=== PATIENT | male | born 1940 | race Caucasian/White ===

== ENCOUNTER 2017-01-27 08:30 | Outpatient (CLI) | payer MEDICARE, BC ==
--- NOTE | 2017-01-27 15:20 | PET ---
PET CT OF THE BRAIN: HISTORY: Early onset Alzheimer's disease. TECHNIQUE: PET CT of the brain was performed following the intravenous administration of 12.2 mCi F18-FDG injec caryn in the right hand. Imaging was performed after an uptake interval of 53 minutes. FINDINGS: There is symmetric tracer distribution to both hemispheres. No hypometabolism is seen in the temporo parietal lobes. IMPRESSION: Normal exam. POS: [facility]
== END 2017-01-27 08:31 | disposition home or self-care (01) ==
LOC: PET 08:30
PROVIDERS: ATTEND Psychiatry & Neurology Neurology
DX: G30.0 Alzheimer's disease with early onset (principal)
CPT/HCPCS: 78608; A9552

== ENCOUNTER 2017-05-09 18:59 | Inpatient (IN) | payer MEDICARE, BC ==
--- NOTE | 2017-05-09 19:53 | RAD ---
CHEST ONE VIEW 05/09/17 HISTORY: Cough. COMPARISON: Chest one view 03/14/17. FINDINGS: The lungs are clear. No pneumothorax or effusion. The cardiac silhouette and mediastinal contours are within normal limits. ' IMPRESSION: No acute intrathoracic abnormality. POS: H
[2017-05-09 19:58] LABS: #Eosinphils 0.1 thou/uL (0.0-0.7); #Neutrophils 7.7 thou/uL (1.40-6.50); %Basophils 0.1 % (0.0-1.0); %Eosinophils 0.9 % (0.0-10.0); %Lymphocytes 9.7 % (21.0-51.0); %Monocytes 10.4 % (0.0-10.0); %Neutrophils 78.8 % (42.0-75.0); Hemoglobin 13.8 g/dL (14.0-18.0); Mean Corpuscular HGB CONC 32.2 g/dL (32.0-36.0); Mean Corpuscular Hemoglobin 32.9 pg (27.0-31.0); Mean Platelet Volume 7.2 fL (7.4-10.4); Platelet Count 214 thou/uL (130-400); RBC Distribution Width 13.2 % (11.5-14.5); Red Blood Cell (RBC) Count 4.18 mill/uL (4.70-6.10); White Blood Cell (WBC) Count 9.8 thou/uL (4.8-10.8)
[2017-05-09 20:16] LABS: ALT (SGPT) 15 U/L (8-55); AST (SGOT) 18 U/L (5-34); Albumin 3.6 g/dL (3.4-4.8); Alkaline Phosphatase 67 U/L (40-150); Anion Gap 14 mmol/L (10-20); BUN (Urea Nitrogen) 18 mg/dL (8.4-25.7); Bilirubin, Total 0.9 mg/dL (0.2-1.2); CK (CPK) 264 U/L (30-200); Calc. Creatinine Clearance 0 mL/min (70-130); Calcium 9.4 mg/dL (7.8-10.44); Carbon Dioxide 25 mmol/L (23-31); Chloride 101 mmol/L (98-107); Estimated GFR-MDRD 43; Globulin 3.5 g/dL (2.4-3.5); Glucose 158 mg/dL (83-110); Potassium 4.2 mmol/L (3.5-5.1); Protein, Total 7.1 g/dL (5.8-8.1); Sodium 136 mmol/L (136-145)
[2017-05-09 20:20] LABS: CKMB 1.4 ng/mL (0-6.6); Troponin I 0.021 ng/mL (< 0.028)
[2017-05-09] MEDS ORDERED: Dexamethasone 4 mg/ml Vial ONE (20:22)
[2017-05-09 20:24] LABS: Bilirubin Negative (Negative); Blood, Urine Trace (Negative); Clarity TURBID (Clear); Glucose, Urine (Dipstick) Negative (Negative); Leukocyte Large (Negative); Nitrite Positive (Negative); Protein, Urine (Dipstick) 100 mg/dL (Neg-Trace); Specific Gravity, Urine 1.022 (1.002-1.036); Urobilinogen 0.2 mg/dL (0.2-1.0)
[2017-05-09 20:27] LABS: Bacteria/HPF 4+ HPF (None Seen); Hyaline Casts/LPF 0-3 HYALINE CAST LPF (0-3 Hyaline); Pathc Cast-AUWi Flag 0.27 (0-2.49); Squamous Epithelial 0-3 HPF (0-3)
[2017-05-09 20:32] LABS: Crystals/HPF RARE TRIPLE PHOS HPF (Negative); RBC/HPF 0-3 HPF (0-3)
[2017-05-09] MEDS ORDERED: Sodium Chloride For Inhalation 0.9% 3 ML NEB ONE (21:27)
[2017-05-09] MEDS ORDERED: Oseltamivir 75 MG CAP PO SCH (22:45)
[2017-05-09] MEDS ORDERED: Acetaminophen 325 MG TAB PO PRN (23:43)
[2017-05-09] MEDS ORDERED: Lorazepam 0.5 MG TAB PO PRN (23:43)
[2017-05-09] MEDS ORDERED: Guaifenesin DM 100-10/5 ML UDCUP PO PRN (23:43)
[2017-05-09] MEDS ORDERED: Mag-Al 1200 mg/1200 mg/30 ML UDCUP PO PRN (23:43)
--- NOTE | 2017-05-10 01:36 | HP ---
REASON FOR ADMISSION: Acute respiratory failure with hypoxia, chronic obstructive pulmonary disease exacerbation, influenza A. HISTORY OF PRESENTING ILLNESS: The patient lives at [facility] and has been wheezing from 2:00 p.m. or so. He had a temperature of 100.7. He had runny nose and was feeling congested from this morning. He was finally sent here as his temperature went up to 101.2 degrees. On arrival in the ER, the patient was hypoxic and had to be placed on BiPAP. His flu came back positive. He has taken his flu shot for this year and pneumococcal shot 2 years back. The patient is wheelchair bound and walks very minimal distance with a rolling walker. 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 Has had intracranial bleed and was in a coma in 2011, in [place], the patient was on Coumadin then. Dyslipidemia, hypertension, suprapubic catheter, hypothyroidism. AICD, cholecystectomy, appendectomy, tonsillectomy, history of IL. CURRENT MEDICATIONS: Per prison records, the patient is on aspirin 81 mg p.o. daily, atorvastatin 80 mg p.o. daily, Coreg 6.25 mg p.o. twice daily, cetirizine 5 mg daily, donepezil 10 mg daily, Zetia 10 mg daily, hydralazine 25 mg 3 times daily, isosorbide dinitrate 10 mg 3 times daily, levothyroxine 75 mcg daily, Protonix 40 mg daily, Seroquel 100 mg p.o. at bedtime and 25 mg p.o. q.a.m., sotalol 120 mg p.o. twice daily, spironolactone 25 mg daily. ALLERGIES: No known drug allergies. PERSONAL HISTORY: Does not abuse alcohol or drugs. No history of smoking. The patient is a resident at [facility]. FAMILY HISTORY: The patient is adopted and he does not know much about his biological parents. Power of compliance attorney is his two nieces, Ms. Ponce and Ms. Brock. The patient's code status is FULL. REVIEW OF SYSTEMS: The following complete review of systems was negative, unless otherwise mentioned in the HPI or below: Constitutional: Weight loss or gain, ability to conduct usual activities. Skin: Rash, itching. Eyes: Double vision, pain. ENT/Mouth: Nose bleeding, neck stiffness, pain, tenderness. Cardiovascular: Palpitations, dyspnea on exertion, orthopnea. Respiratory: Shortness of breath, wheezing, cough, hemoptysis, fever or night sweats. Gastrointestinal: Poor appetite, abdominal pain, heartburn, nausea, vomiting, constipation, or diarrhea. Genitourinary: Urgency, frequency, dysuria, nocturia. Musculoskeletal: Pain, swelling. Neurologic/Psychiatric: Anxiety, depression. Allergy/Immunologic: Skin rash, bleeding tendency. PHYSICAL EXAMINATION: GENERAL: The patient is a 76-year-old male, who is currently not in any acute distress. VITAL SIGNS: Blood pressure 130/62, pulse 74 per minute, respiratory rate 20 per minute, temperature 98.8 degrees Fahrenheit, saturating 98% on 4 liters nasal cannula and 99% on BiPAP. NECK: Supple, no elevated JVD. HEENT: Eyes: Extraocular muscles are intact. Pupils are reacting to light. Oral cavity: Mucous membranes are moist. No exudates or congestion. CARDIOVASCULAR SYSTEM: S1, S2 heard. Regular rhythm. RESPIRATORY SYSTEM: Air entry 1+ bilateral. Scattered wheezes plus bilateral. ABDOMEN: Soft, bowel sounds heard. No tenderness, rigidity or guarding. Has a suprapubic catheter. EXTREMITIES: There is 2+ peripheral edema. No calf tenderness. VASCULAR SYSTEM: Peripheral pulses 1+ bilateral. No ischemic ulcerations or gangrene. CENTRAL NERVOUS SYSTEM: No gross focal deficits seen. The patient moves all extremities. PSYCHIATRIC SYSTEM: The patient does not have any hallucinations or delusions at present. LABORATORY AND X-RAY FINDINGS: EKG shows normal sinus rhythm at 72 beats per minute. White count of 9, H&H 13 and 42, platelet count 214, MCV is 102 with 78 % neutrophils. BUN 18, creatinine 1.5. Serum bicarbonate 25. BNP is 320, CK level is 264. Liver enzymes within normal limits. First set of cardiac enzymes are negative. UA shows positive nitrite, large leukocyte esterase, greater than 50 wbc's and 4+ bacteria. Influenza A was positive, influenza A antigen is positive on the nasal swab. Chest x-ray, no acute cardiopulmonary abnormalities. CLINICAL IMPRESSION AND PLAN: The patient will be admitted to [facility] for acute respiratory failure with hypoxia and being on BiPAP. He also has acute chronic obstructive pulmonary disease exacerbation with current wheezing. 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 In view of above-mentioned factors, he will be on IMCU. He will be on Solu-Medrol 40 mg IV q.6 hourly along with DuoNebs and empiric Levaquin. He will also be on Tamiflu 75 mg twice daily. The patient appears to be a vaccine failure for flu. We will continue him on his home medications including Lipitor, Coreg, Zetia, hydralazine, Isordil, sotalol and spironolactone as before. Ultrasound venous Doppler of lower extremities will be obtained to rule out deep venous thrombosis. Please note the patient has prior history of intracranial hemorrhage in 2011 and was in a coma per family. Code status is FULL, I have discussed this with the patient and his 2 nieces who were also the power of compliance attorney. SPENSER
[2017-05-10] MEDS ORDERED: Levofloxacin 500 mg/D5W 100 ml Premix Bag ONE (01:40)
[2017-05-10 04:15] LABS: #Lymphocytes 0.5 thou/uL (1.20-3.40); #Monocytes 0.3 thou/uL (0.11-0.59); #Neutrophils 8.8 thou/uL (1.40-6.50); %Basophils 0.1 % (0.0-1.0); %Eosinophils 0.2 % (0.0-10.0); %Lymphocytes 5.3 % (21.0-51.0); %Monocytes 3.4 % (0.0-10.0); %Neutrophils 91.1 % (42.0-75.0); Hemoglobin 13.4 g/dL (14.0-18.0); Mean Corpuscular HGB CONC 32.5 g/dL (32.0-36.0); Mean Corpuscular Hemoglobin 33.3 pg (27.0-31.0); Mean Platelet Volume 7.5 fL (7.4-10.4); Platelet Count 200 thou/uL (130-400); RBC Distribution Width 13.1 % (11.5-14.5); Red Blood Cell (RBC) Count 4.01 mill/uL (4.70-6.10); White Blood Cell (WBC) Count 9.7 thou/uL (4.8-10.8)
[2017-05-10 04:31] LABS: Anion Gap 16 mmol/L (10-20); BUN (Urea Nitrogen) 20 mg/dL (8.4-25.7); Calc. Creatinine Clearance 0 mL/min (70-130); Calcium 9.3 mg/dL (7.8-10.44); Carbon Dioxide 23 mmol/L (23-31); Chloride 102 mmol/L (98-107); Estimated GFR-MDRD 49; Glucose 240 mg/dL (83-110); Potassium 4.7 mmol/L (3.5-5.1); Sodium 136 mmol/L (136-145)
[2017-05-10] MEDS ORDERED: Water For Inject, Bacteriostat 30 ML ONE (06:30)
--- NOTE | 2017-05-10 09:06 | ULT ---
BILATERAL UPPER EXTREMITY ULTRASOUND WITH DUPLEX VENOUS DOPPLER: CPT: 30887 ICD-10-PCS: B54D INDICATIONS: Edema. TECHNIQUE: Color-flow Doppler, spectral wave-form analysis of pulsed Doppler, and juan-scale imaging with compre ssion and augmentation were used to evaluate the bilateral common femoral, femoral, popliteal, stock wetter ior tibial, and superficial femoral veins, and the proximal portions of the profunda femoral and grea ter saphenous veins. FINDINGS: Appropriate compressibility and flow within the imaged deep venous system of each lower extremity. IMPRESSION: 1. No deep venous thrombosis. 2. Soft tissue edema. Correlate clinically. POS: [facility]
--- NOTE | 2017-05-10 17:08 | PDOC.PN ---
- Subjective Encounter Start Date: 05/10/17 Encounter Start Time: 17:06 sob better no n/v no f/c - Objective Resuscitation Status: Resuscitation Status FULL:Full Resuscitation MAR Reviewed: Yes Vital Signs & Weight: Vital Signs (12 hours) Pulse Resp Pulse Ox 05/10/17 14:39 61 20 05/10/17 10:10 61 20 95 05/10/17 06:39 60 20 99 Result Diagrams: 05/10/17 03:46 05/10/17 03:46 Phys Exam - Physical Examination Constitutional: NAD HEENT: PERRLA Neck: no JVD scattered wheezes Cardiovascular: RRR Gastrointestinal: non-tender supra pubic cath in place Musculoskeletal: pulses present Neurological: moves all 4 limbs Psychiatric: A&O x 3 Dx/Plan (1) CHF exacerbation Code(s): I50.9 - HEART FAILURE, UNSPECIFIED Status: Acute (2) COPD exacerbation Code(s): J44.1 - CHRONIC OBSTRUCTIVE PULMONARY DISEASE W (ACUTE) EXACERBATION Status: Acute (3) Influenza A Code(s): J10.1 - FLU DUE TO OTH IDENT INFLUENZA VIRUS W OTH RESP MANIFEST Status: Acute (4) Hyperlipidemia Code(s): E78.5 - HYPERLIPIDEMIA, UNSPECIFIED Status: Acute (5) CAD (coronary artery disease) Code(s): I25.10 - ATHSCL HEART DISEASE OF [place] CORONARY ARTERY W/O ANG PCTRS Status: Acute (6) Dyslipidemia Code(s): E78.5 - HYPERLIPIDEMIA, UNSPECIFIED Status: Acute - Plan * cont current mx * f/u echo
[2017-05-10] MEDS ORDERED: Furosemide 40 MG/4 ML VIAL ONE (18:55)
[2017-05-10] MEDS: Carvedilol 6.25 MG TAB PO SCH ×2 (19:53→19:58)
[2017-05-10] MEDS: Levothyroxine Sodium 75 MCG TAB PO SCH (19:53)
[2017-05-10] MEDS: Docusate 100 MG CAP PO SCH ×2 (19:54→21:42)
[2017-05-10] MEDS: Famotidine 20 MG TAB PO SCH (19:54)
[2017-05-10] MEDS: Ezetimibe 10 MG TAB PO SCH (19:54)
[2017-05-10] MEDS: hydrALAZINE 25 MG TAB PO SCH ×2 (19:55→20:49)
[2017-05-10] MEDS: Isosorbide Dinitrate 20 MG TAB PO SCH ×3 (19:55→20:49)
[2017-05-10] MEDS: Multivitamin W/ Minerals 1 TAB PO SCH (19:56)
[2017-05-10] MEDS: Spironolactone 25 MG TAB PO SCH (19:56)
[2017-05-10] MEDS: Oseltamivir 75 MG CAP PO SCH ×2 (19:56→20:49)
[2017-05-10] MEDS: Sotalol HCl 80 MG TAB PO SCH ×2 (19:56→20:47)
[2017-05-10] MEDS: Furosemide 40 MG/4 ML VIAL SLOW IVP SCH (19:57)
[2017-05-10] MEDS: Atorvastatin Calcium 40 MG TAB PO SCH (20:48)
[2017-05-11 00:30] VITALS: BMI 31.6
[2017-05-11 04:55] LABS: #Lymphocytes 0.9 thou/uL (1.20-3.40); #Monocytes 0.9 thou/uL (0.11-0.59); #Neutrophils 13.5 thou/uL (1.40-6.50); %Basophils 0.1 % (0.0-1.0); %Eosinophils 0.1 % (0.0-10.0); %Lymphocytes 5.9 % (21.0-51.0); %Monocytes 5.6 % (0.0-10.0); %Neutrophils 88.3 % (42.0-75.0); Hemoglobin 12.5 g/dL (14.0-18.0); Mean Corpuscular HGB CONC 32.4 g/dL (32.0-36.0); Mean Platelet Volume 7.3 fL (7.4-10.4); Platelet Count 235 thou/uL (130-400); Red Blood Cell (RBC) Count 3.79 mill/uL (4.70-6.10); White Blood Cell (WBC) Count 15.3 thou/uL (4.8-10.8)
[2017-05-11 05:33] LABS: Albumin 3.2 g/dL (3.4-4.8); Anion Gap 15 mmol/L (10-20); BUN (Urea Nitrogen) 27 mg/dL (8.4-25.7); BUN/Creatinine Ratio 17.42; Calc. Creatinine Clearance 66 mL/min (70-130); Carbon Dioxide 24 mmol/L (23-31); Chloride 101 mmol/L (98-107); Estimated GFR-MDRD 44; Glucose 195 mg/dL (83-110); Phosphorus 2.6 mg/dL (2.3-4.7); Potassium 3.9 mmol/L (3.5-5.1); Sodium 136 mmol/L (136-145)
[2017-05-11] MEDS: Furosemide 40 MG/4 ML VIAL SLOW IVP SCH ×2 (05:47→15:15)
[2017-05-11] MEDS: Levothyroxine Sodium 75 MCG TAB PO SCH (05:47)
--- NOTE | 2017-05-11 08:07 | RAD ---
AP VIEW OF THE CHEST: INDICATION: Shortness of breath. COMPARISON: Prior exam dated 05/09/17. FINDINGS: Lungs are clear. Cardiomediastinal silhouette is within normal limits. AICD is unchanged. Healed d eformity involving the mid left clavicle is similar. IMPRESSION: No acute cardiopulmonary abnormality. POS: [facility]
[2017-05-11] MEDS ORDERED: Prevnar 13-Val Conj/PF 0.5 ML SYRINGE IM ONE (09:00)
[2017-05-11] MEDS: Isosorbide Dinitrate 20 MG TAB PO SCH ×3 (09:52→21:39)
[2017-05-11] MEDS: Spironolactone 25 MG TAB PO SCH (09:56)
[2017-05-11] MEDS: Ezetimibe 10 MG TAB PO SCH (09:56)
[2017-05-11] MEDS: Sotalol HCl 80 MG TAB PO SCH ×2 (09:56→21:37)
[2017-05-11] MEDS: Docusate 100 MG CAP PO SCH ×2 (09:57→21:40)
[2017-05-11] MEDS: Oseltamivir 75 MG CAP PO SCH ×2 (09:57→21:38)
[2017-05-11] MEDS: hydrALAZINE 25 MG TAB PO SCH ×3 (09:58→21:39)
[2017-05-11] MEDS: Carvedilol 6.25 MG TAB PO SCH ×2 (09:58→17:50)
[2017-05-11] MEDS: Multivitamin W/ Minerals 1 TAB PO SCH (09:58)
[2017-05-11] MEDS: Famotidine 20 MG TAB PO SCH (09:59)
--- NOTE | 2017-05-11 11:00 | PQF ---
INOCENCIO FLORES DAMODHARAN [id number] [facility] [id number] CLINICAL DOCUMENTATION IMPROVEMENT CLARIFICATION FORM: ICD-10 Updated PLEASE DO AN ADDENDUM TO THE PROGRESS NOTE WITH ANY DOCUMENTATION UPDATES OR ADDITIONS AND CARRY THROUGH TO DC SUMMARY. THANK YOU. DATE: 05-11-17 ATTN: DR. DAS Please exercise your independent, professional judgment in responding to the clarification form. Clinical indicators are provided on the bottom of this form for your review Please check appropriate box(s): [ ] UTI D/T Suprapubic Catheter [ ] UTI NOT D/T Suprapubic Catheter [# ] Contaminated urine specimen without UTI [ ] Other diagnosis [ ] Unable to determine For continuity of documentation, please document condition throughout progress notes and discharge summary. Thank You. CLINICAL INDICATORS - SIGNS / SYMPTOMS / LABS 1-6 Positive urinalysis - LARGE LEUKOCYTE ER: CHIEF COMPLAINT - [place] STAFF INFORMED TMAX 100.7 ER DX: UTI - SAMPLE TAKEN FROM SUPRAPUBIC CATHETER RISK FACTORS H&P: HAS A SUPRAPUBIC CATHETER TREATMENT: CPOE - MAR: LEVAQUIN (05-10) THANK YOU, HEIDI (This form is maintained as a part of the permanent medical record) 2015 [employer] All Rights Reserved Heidi Gilman RN, BS [email or web address]
--- NOTE | 2017-05-11 14:49 | CON ---
DATE OF CONSULTATION: 05/11/2017 HISTORY OF PRESENT ILLNESS: Mr. Hagen is a 76-year-old morbidly obese gentleman who apparently canales s short term memory issues and dementia, who is residing in a halfway community, presented to the hospital with cough, congestion, bronchitis and shortness of breath. He was found to have influenza A. He sees Dr. Blackwell for regular care. He is a nonsmoker. No prior history of TB or pneumonia. PAST MEDICAL HISTORY: Hypothyroidism, coronary artery disease, AICD, lipidemia and UTI. PAST SURGICAL HISTORY: Bypass, AICD, appendix, gallbladder and tonsils. MEDICATIONS: Tramadol, hydralazine 25, Aldactone 25, sotalol 120 twice a day, Seroquel 100, Ativan 0 .5 three times a day, Synthroid 75 a day, Ismo 10 three times a day, DuoNeb, Zetia 10, donepezil 10, Coreg 6.25, Lipitor 80, aspirin and Tylenol. Since admission, he was started on Tamiflu and Levaquin . SOCIAL HISTORY: He is an retired teacher. ALLERGIES: None. REVIEW OF SYSTEMS: Ten-point negative. PHYSICAL EXAMINATION: VITAL SIGNS: Sats are at 96% on 2 liters, blood pressure 130/69, pulse 80 and respiratory rate 18. CHEST: No wheezing or crackles. CARDIAC: Normal S1 and S2. No gallops. ABDOMEN: Soft. No masses. LABORATORY DATA AND IMAGING DATA: White count 15,000, hemoglobin and hematocrit 12 and 38, platelet count is normal. Creatinine is 1.5. X-ray is normal. Urine is growing gram-negative rods. IMPRESSION: 1. Influenza A. 2. Urinary tract infection, chronic indwelling catheter. 3. Dementia. 4. Renal failure. 5. Chronic obstructive pulmonary disease. 6. Morbid obesity. PLAN: We will continue antibiotics. They are eager to go back to the longterm. Await all culture results before we transfer him back . Monitor renal function. We will deescalate antibiotics. Please note this is a consultation note in which fifty-minute is spent at the patient's bedside on e floor with direct patient care.
--- NOTE | 2017-05-11 18:37 | PDOC.PN ---
- Subjective Encounter Start Date: 05/11/17 Encounter Start Time: 18:36 Patient seen and examined. No new complaints. No overnight events - Objective Resuscitation Status: Resuscitation Status FULL:Full Resuscitation MAR Reviewed: Yes Vital Signs & Weight: Vital Signs (12 hours) Temp Pulse Pulse Pulse Resp BP BP 05/11/17 17:50 112/64 05/11/17 16:11 98.3 F 78 20 05/11/17 15:15 76 123/60 05/11/17 14:12 76 20 05/11/17 11:24 98.3 F 79 18 05/11/17 10:30 83 87 98/63 05/11/17 09:58 80 132/69 05/11/17 09:56 75 132/69 05/11/17 08:15 05/11/17 08:09 80 20 05/11/17 08:00 98.3 F 75 18 BP BP Pulse Ox 05/11/17 17:50 05/11/17 16:11 114/66 96 05/11/17 15:15 05/11/17 14:12 05/11/17 11:24 104/58 L 93 L 05/11/17 10:30 98/56 L 05/11/17 09:58 05/11/17 09:56 05/11/17 08:15 93 L 05/11/17 08:09 93 L 05/11/17 08:00 95 Weight Weight 260 lb I&O: 05/10/17 05/11/17 05/12/17 06:59 06:59 06:59 Intake Total 340 Output Total 1700 Balance -1360 Result Diagrams: 05/11/17 04:26 05/11/17 04:26 Phys Exam - Physical Examination Constitutional: NAD HEENT: PERRLA Neck: no JVD Respiratory: no wheezing coarse bs Cardiovascular: no significant murmur Gastrointestinal: non-tender Musculoskeletal: pulses present Neurological: moves all 4 limbs Psychiatric: A&O x 3 Dx/Plan (1) CHF exacerbation Code(s): I50.9 - HEART FAILURE, UNSPECIFIED Status: Acute (2) COPD exacerbation Code(s): J44.1 - CHRONIC OBSTRUCTIVE PULMONARY DISEASE W (ACUTE) EXACERBATION Status: Acute (3) Influenza A Code(s): J10.1 - FLU DUE TO OTH IDENT INFLUENZA VIRUS W OTH RESP MANIFEST Status: Acute (4) Hyperlipidemia Code(s): E78.5 - HYPERLIPIDEMIA, UNSPECIFIED Status: Acute (5) CAD (coronary artery disease) Code(s): I25.10 - ATHSCL HEART DISEASE OF [place] CORONARY ARTERY W/O ANG PCTRS Status: Acute (6) Dyslipidemia Code(s): E78.5 - HYPERLIPIDEMIA, UNSPECIFIED Status: Acute - Plan * cont current mx * f/u echo * pulm input appreciated
[2017-05-11] MEDS: Atorvastatin Calcium 40 MG TAB PO SCH (21:38)
[2017-05-12 05:17] LABS: #Lymphocytes 1.9 thou/uL (1.20-3.40); #Monocytes 0.6 thou/uL (0.11-0.59); #Neutrophils 7.2 thou/uL (1.40-6.50); %Basophils 0.4 % (0.0-1.0); %Eosinophils 0.3 % (0.0-10.0); %Lymphocytes 19.1 % (21.0-51.0); %Monocytes 5.8 % (0.0-10.0); %Neutrophils 74.4 % (42.0-75.0); Hemoglobin 12.8 g/dL (14.0-18.0); Mean Corpuscular Hemoglobin 33.6 pg (27.0-31.0); Platelet Count 217 thou/uL (130-400); Red Blood Cell (RBC) Count 3.81 mill/uL (4.70-6.10); White Blood Cell (WBC) Count 9.7 thou/uL (4.8-10.8)
[2017-05-12] MEDS: Levothyroxine Sodium 75 MCG TAB PO SCH (05:17)
[2017-05-12 05:47] LABS: Albumin 3.2 g/dL (3.4-4.8); Anion Gap 11 mmol/L (10-20); BUN (Urea Nitrogen) 29 mg/dL (8.4-25.7); BUN/Creatinine Ratio 18.59; Calc. Creatinine Clearance 64 mL/min (70-130); Calcium 8.9 mg/dL (7.8-10.44); Carbon Dioxide 29 mmol/L (23-31); Chloride 101 mmol/L (98-107); Estimated GFR-MDRD 43; Glucose 143 mg/dL (83-110); Phosphorus 3.1 mg/dL (2.3-4.7); Potassium 3.4 mmol/L (3.5-5.1); Sodium 138 mmol/L (136-145)
[2017-05-12] MEDS ORDERED: Sodium Chloride 0.9% 10 ML ONE (08:00)
[2017-05-12] MEDS: Multivitamin W/ Minerals 1 TAB PO SCH (09:20)
[2017-05-12] MEDS: Docusate 100 MG CAP PO SCH (09:20)
[2017-05-12] MEDS: Oseltamivir 75 MG CAP PO SCH (09:20)
[2017-05-12] MEDS: hydrALAZINE 25 MG TAB PO SCH ×2 (09:20→15:13)
[2017-05-12] MEDS: Carvedilol 6.25 MG TAB PO SCH ×2 (09:21→16:49)
[2017-05-12] MEDS: Spironolactone 25 MG TAB PO SCH (09:21)
[2017-05-12] MEDS: Isosorbide Dinitrate 20 MG TAB PO SCH ×2 (09:21→15:16)
[2017-05-12] MEDS: Sotalol HCl 80 MG TAB PO SCH (09:22)
[2017-05-12] MEDS: Famotidine 20 MG TAB PO SCH (09:22)
[2017-05-12] MEDS: Ezetimibe 10 MG TAB PO SCH (09:22)
--- NOTE | 2017-05-12 10:29 | PRG ---
DATE OF SERVICE: 05/12/2017 This morning he is awake, responsive, less agitated. PHYSICAL EXAMINATION: VITAL SIGNS: His sats are 95 on 2 liters, temperature 96, blood pressure 120/61. CHEST: Chest revealed occasional wheeze. CARDIAC: Normal S1-S2. No gallops. ABDOMEN: No masses. LABORATORY: White count 9000, H&H 12 and 38, platelet count 217, creatinine 1.7. IMPRESSION: 1. Baseline dementia. 2. Urinary tract infection, Escherichia coli. 3. Influenza. 4. Renal failure. PLAN: He is stable enough to be transferred back to his Alzheimer's unit. Antibiotics for UTI. Gamez iflu for influenza for 5 days.
--- NOTE | 2017-05-12 12:02 | PDOC.PN ---
- Subjective Encounter Start Date: 05/12/17 Encounter Start Time: 12:01 Patient seen and examined. No new complaints. No overnight events - Objective Resuscitation Status: Resuscitation Status FULL:Full Resuscitation MAR Reviewed: Yes Vital Signs & Weight: Vital Signs (12 hours) Temp Pulse Resp BP BP Pulse Ox 05/12/17 09:22 77 05/12/17 09:21 125/61 05/12/17 09:20 77 125/61 05/12/17 08:00 96.8 F L 77 22 H 125/61 95 05/12/17 07:20 79 16 96 05/12/17 04:44 93 L 05/12/17 04:00 97.9 F 70 22 H 104/55 L 97 05/12/17 00:42 72 16 93 L Weight Weight 254 lb I&O: 05/11/17 05/12/17 05/13/17 06:59 06:59 06:59 Intake Total 340 460 Output Total 1700 1200 Balance -1360 -740 Result Diagrams: 05/12/17 04:44 05/12/17 04:44 Phys Exam - Physical Examination Constitutional: NAD HEENT: PERRLA Neck: no nodes coarse bs Cardiovascular: no significant murmur Gastrointestinal: non-tender Musculoskeletal: pulses present Neurological: normal sensation, moves all 4 limbs Psychiatric: A&O x 3 Dx/Plan (1) CHF exacerbation Code(s): I50.9 - HEART FAILURE, UNSPECIFIED Status: Acute Qualifiers: Congestive heart failure type: diastolic Qualified Code(s): I50.33 - Acute on chronic diastolic (congestive) heart failure Comment: ef-55% (2) COPD exacerbation Code(s): J44.1 - CHRONIC OBSTRUCTIVE PULMONARY DISEASE W (ACUTE) EXACERBATION Status: Acute (3) Influenza A Code(s): J10.1 - FLU DUE TO OTH IDENT INFLUENZA VIRUS W OTH RESP MANIFEST Status: Acute (4) Hyperlipidemia Code(s): E78.5 - HYPERLIPIDEMIA, UNSPECIFIED Status: Acute (5) CAD (coronary artery disease) Code(s): I25.10 - ATHSCL HEART DISEASE OF [place] CORONARY ARTERY W/O ANG PCTRS Status: Acute (6) Dyslipidemia Code(s): E78.5 - HYPERLIPIDEMIA, UNSPECIFIED Status: Acute (7) Atrial fib/flutter, transient Code(s): [id number] - Status: Acute Comment: paroxysmal on aspirin for anticoagulation as pt is high risk of fall out pt f/u cardiology - Plan * doing good * d/c to [facility]
[2017-05-12 15:24] VITALS: BP 141/67; TEMP 97
--- NOTE | 2017-05-12 21:45 | DIS ---
DATE OF ADMISSION: 05/09/2017 DATE OF DISCHARGE: 05/12/2017 DIAGNOSES ON DISCHARGE: Acute on chronic diastolic congestive heart failure with an ejection fractio n of 55%, resolved; acute chronic obstructive pulmonary disease exacerbation secondary to influenza A , better; acute respiratory failure with hypoxia, better; history of coronary artery disease status p ost coronary artery bypass graft, stable; anoxic brain injury after myocardial infarction in 2000, st able; hypothyroidism, stable; AICD; dyslipidemia; hypertension; suprapubic catheter. DISCHARGE MEDICATIONS: The patient's discharge medications are the same as admit medications plus Le vaquin 500 mg p.o. daily for 7 days, Tamiflu 75 mg p.o. b.i.d. for 6 days, and Lasix 40 mg p.o. daily for 7 days. CONSULTANTS ON CASE: Pulmonary. BRIEF HOSPITAL COURSE: This is a 76-year-old pleasant gentleman, who was apparently in the usual sta te of health, came into the hospital with a temperature of 100.7 and was hypoxic. He was feeling con gested. He tested positive for the flu and he also had an upper respiratory tract infection. He had COPD exacerbation as well and congestive heart failure exacerbation as well. He was diuresed adequa tely and put on neb treatments and treatment for the flu and Levaquin for the upper respiratory tract infection. He improved with this treatment and right now is medically stable. Patient has a suprap ubic catheter and the urine specimen collected was from the bag, which showed evidence of some E. col i, but because the patient was stable and had no symptoms, I regarded it as a contaminated urine spec imen. The patient right now is doing much better. He is medically stable to be discharged back to [facility] and follow up with his PCP in 1 week. He is asked to come back to the emergency room in case symptoms recur. Total time for this discharge took 35 minutes.
== END 2017-05-12 17:38 | disposition home or self-care (01) | DRG 291 ==
LOC: ERS 18:59 → ERHOLD 22:43 → 2NO 05-10 19:27
PROVIDERS: ADMIT Internal Medicine; ATTEND Internal Medicine
PROC: 5A09357 Assistance with Respiratory Ventilation, Less than 24 Consecutive Hours, Continuous Positive Airway Pressure (ICD-10-PCS; principal; 2017-05-09)
PROC: 5A09357 Assistance with Respiratory Ventilation, Less than 24 Consecutive Hours, Continuous Positive Airway Pressure (ICD-10-PCS; 2017-05-09)
DX: I11.0 Hypertensive heart disease with heart failure (principal); J96.01 Acute respiratory failure with hypoxia; L89.302 Pressure ulcer of unspecified buttock, stage 2; J44.1 Chronic obstructive pulmonary disease with (acute) exacerbation; I50.33 Acute on chronic diastolic (congestive) heart failure; G30.9 Alzheimer's disease, unspecified; F02.80 Dementia in other diseases classified elsewhere, unspecified severity, without behavioral disturbance, psychotic disturbance, mood disturbance, and anxiety; J11.1 Influenza due to unidentified influenza virus with other respiratory manifestations; Z99.3 Dependence on wheelchair; Z95.1 Presence of aortocoronary bypass graft; Z87.820 Personal history of traumatic brain injury; I25.2 Old myocardial infarction; E78.5 Hyperlipidemia, unspecified; Z96.0 Presence of urogenital implants; E03.9 Hypothyroidism, unspecified; Z95.810 Presence of automatic (implantable) cardiac defibrillator; Z79.82 Long term (current) use of aspirin; I25.10 Atherosclerotic heart disease of native coronary artery without angina pectoris; E66.01 Morbid (severe) obesity due to excess calories; Z68.30 Body mass index [BMI] 30.0-30.9, adult; I44.0 Atrioventricular block, first degree; J39.8 Other specified diseases of upper respiratory tract
CPT/HCPCS: 36415; 71045; 80048; 80053; 80069; 81003; 81015; 82550; 82553; 83605; 83880; 84484; 85025; 87040; 87077; 87086; 87149; 87186; 87633; 93005; 93306; 93970; 94640; 94660; 96365; 96375; 96376; A4216; G8978-GP-CL; G8979-GP-CJ; J0696; J1100; J1940; J1956; J2920; J7620

== ENCOUNTER 2017-09-22 15:22 | Outpatient (CLI) | payer MEDICARE, BC | END 2017-09-22 15:23 | disposition home or self-care (01) | LOC: BICULT 15:22 | PROVIDERS: ATTEND Family Medicine | DX: Z03.89 Encounter for observation for other suspected diseases and conditions ruled out (principal) ==

== ENCOUNTER 2017-09-25 08:17 | Outpatient (CLI) | payer MEDICARE, BC ==
[2017-09-25] MEDS ORDERED: ISOVUE-370 76%-LOCM 1 ML ONE (11:16)
== END 2017-09-25 08:18 | disposition home or self-care (01) ==
LOC: BICCT 08:17
PROVIDERS: ATTEND Specialist
DX: E04.1 Nontoxic single thyroid nodule (principal); R22.0 Localized swelling, mass and lump, head
CPT/HCPCS: 70491

== ENCOUNTER → 2017-10-22 | Day surgery (SDC) | payer MEDICARE, BC ==
[~2017-10-22] MED LIST: Fentanyl 100 MCG/2 ML VIAL ONE; Lidocaine 1% PF 5 ML VIAL ONE; Lidocaine 1% w/Epinephrine 1:100K 30 ML VIAL ONE; Ondansetron HCl/PF 4 MG/2 ML Vial ONE; PROPOFOL 200 MG/20 ML VIAL ONE; ePHEDrine/0.9% NaCl/PF SYRINGE 50 mg/10 ml ONE
[2017-10-22 14:39] LABS: Hemoglobin 14.3 g/dL (14.0-18.0); Platelet Count 255 thou/uL (130-400)
[2017-10-22 15:10] LABS: Anion Gap 13 mmol/L (10-20); BUN (Urea Nitrogen) 22 mg/dL (8.4-25.7); Calc. Creatinine Clearance 0 mL/min (70-130); Calcium 9.7 mg/dL (7.8-10.44); Carbon Dioxide 27 mmol/L (23-31); Chloride 104 mmol/L (98-107); Estimated GFR-MDRD 47; Glucose 118 mg/dL (83-110); Sodium 140 mmol/L (136-145)
--- NOTE | 2017-10-23 09:30 | OP ---
DATE OF PROCEDURE: 10/22/2017 SURGEON: Dr. Juan Douglass PREOPERATIVE DIAGNOSES: 1. 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 2. Left parotid mass. PROCEDURE PERFORMED: 1. Excision of right malignant ear lesion with measuring 2.4 cm involving the antihelix and lobe wit h complex closure. 2. Left superficial parotidectomy with facial nerve dissection. PROCEDURE IN DETAIL: After consent was obtained, the patient was identified, brought to the operatin g room and placed on the operating table in supine position. General endotracheal anesthesia was obt ained. The patient was positioned for surgery. We addressed the right ear lesion first. The area w as prepped and draped and infiltrated with 1% lidocaine 1:10,000 epinephrine. A complex lesion was i dentified that involved the antihelix lobule and inferior aspect of the external canal and a 3 dimens ional elliptical incision was made under microscopic visualization. We then sent the specimen for fr weber section and found it to have clear margins. We then proceeded with rotating flaps into the defe ct and closing with 6-0 Prolene. Dermabond was then placed over the wound and we then prepped and dr aped for the contralateral side. A facial nerve monitor was placed at this point and documented to be working both in the mouth and ey e. We infiltrated the upper neck along a natural skin crease 2 fingerbreadths below the angle of the jaw and the preauricular space. We then delineated the high line of the incision and created an inc ision with a 15 blade through the skin and subcutaneous tissues. Hemostasis was obtained with the el ectrocautery. We then identified the anterior border of sternocleidomastoid and identified as well. Our incision extended down to the level of the SMAS and the parotid fascia. We then elevated a larg e facial flap anterior from this at this point and suture secured the flap to the anterior facial ski n. We then discontinued our dissection in the preauricular space and along the anterior border of st ernocleidomastoid a careful dissection happened at the level of the external canal cartilage and the posterior digastric muscle. Ultimately the trunk of the facial nerve was identified and it was follo wed along the PES. Both inferior and superior branches were identified and followed as all subsequen t branches that were encountered followed and dissected. This then allowed for reflection of the par otid gland inferiorly and anterior and inferior from the lesion and both inferiorly, anteriorly and p osteriorly. Ultimately, we were able to dissect the parotid tumor free from the facial nerve and the specimen was sent for histologic evaluation. We then turned our attention to hemostasis. A facial nerve stimulator was used and all branches responded and were intact. The wound was closed in layers with some fibular SurgiSeal placed over the facial nerve to prevent Thomas's syndrome. We then used a 5-0 Monocryl to reapproximate the dermis and a 6-0 Prolene for the skin. A sterile dressing was puma lied. The patient was awakened, extubated, and taken to the recovery room where he remained in stabl e condition prior to discharge home.
== END ==
LOC: SDC 13:59
PROVIDERS: ATTEND Specialist
PROC: 0HX2XZZ Transfer Right Ear Skin, External Approach (ICD-10-PCS; principal; 2017-10-22)
PROC: 0HB2XZZ Excision of Right Ear Skin, External Approach (ICD-10-PCS; 2017-10-22)
PROC: 0CB90ZZ Excision of Left Parotid Gland, Open Approach (ICD-10-PCS; 2017-10-22)
DX: C44.222 Squamous cell carcinoma of skin of right ear and external auricular canal (principal); K11.8 Other diseases of salivary glands; E03.9 Hypothyroidism, unspecified; I25.10 Atherosclerotic heart disease of native coronary artery without angina pectoris; E78.5 Hyperlipidemia, unspecified; J44.9 Chronic obstructive pulmonary disease, unspecified; I50.9 Heart failure, unspecified; I48.91 Unspecified atrial fibrillation; I25.2 Old myocardial infarction; N40.0 Benign prostatic hyperplasia without lower urinary tract symptoms; Z86.718 Personal history of other venous thrombosis and embolism; Z79.82 Long term (current) use of aspirin; Z79.84 Long term (current) use of oral hypoglycemic drugs; Z79.899 Other long term (current) drug therapy; Z88.8 Allergy status to other drugs, medicaments and biological substances; Z95.1 Presence of aortocoronary bypass graft
CPT/HCPCS: 36415; 80048; 85014; 85018; 85049; 88305; 88307; 93005; 93010; J2001; J2405; J2704; J3010

== ENCOUNTER 2021-05-30 22:55 | Emergency (ER) | payer MEDICARE, BC ==
[2021-05-31 00:20] LABS: #Eosinphils 0.4 thou/uL (0.0-0.7); #Lymphocytes 1.4 thou/uL (1.20-3.40); #Monocytes 0.7 thou/uL (0.11-0.59); #Neutrophils 5.6 thou/uL (1.40-6.50); %Basophils 0.4 % (0.0-1.0); %Eosinophils 5.1 % (0.0-10.0); %Lymphocytes 16.7 % (21.0-51.0); %Monocytes 8.3 % (0.0-10.0); %Neutrophils 69.4 % (42.0-75.0); Hemoglobin 11.8 g/dL (14.0-18.0); Mean Corpuscular HGB CONC 32.3 g/dL (32.0-36.0); Mean Corpuscular Hemoglobin 32.5 pg (27.0-31.0); Mean Platelet Volume 7.3 fL (7.4-10.4); Platelet Count 180 thou/uL (130-400); RBC Distribution Width 13.6 % (11.5-14.5); Red Blood Cell (RBC) Count 3.64 mill/uL (4.70-6.10); White Blood Cell (WBC) Count 8.1 thou/uL (4.8-10.8)
[2021-05-31 00:40] LABS: ALT (SGPT) 9 U/L (8-55); AST (SGOT) 10 U/L (5-34); Albumin 3.2 g/dL (3.4-4.8); Alkaline Phosphatase 65 U/L (40-110); Anion Gap 11 mmol/L (10-20); BUN (Urea Nitrogen) 21 mg/dL (8.4-25.7); Bilirubin, Total 0.5 mg/dL (0.2-1.2); Calc. Creatinine Clearance 0 mL/min (70-130); Calcium 8.6 mg/dL (7.8-10.44); Carbon Dioxide 26 mmol/L (23-31); Chloride 111 mmol/L (98-107); Globulin 2.9 g/dL (2.4-3.5); Glucose 146 mg/dL (83-110); Potassium 4.2 mmol/L (3.5-5.1); Protein, Total 6.1 g/dL (5.8-8.1); Sodium 144 mmol/L (136-145)
[2021-05-31 01:21] LABS: Bilirubin Negative (Negative); Blood, Urine Large (Negative); Glucose, Urine (Dipstick) Negative (Negative); Ketone, Urine 15 mg/dL (Negative); Leukocyte Moderate (Negative); Nitrite Positive (Negative); Protein, Urine (Dipstick) 100 mg/dL (Neg-Trace); Specific Gravity, Urine 1.025 (1.005-1.030); pH, Urine 6.5 (5.0-9.0)
[2021-05-31 01:25] LABS: Clarity Turbid (Clear)
[2021-05-31 01:28] LABS: Bacteria/HPF 4+ HPF (None Seen); RBC/HPF Greater than 50 HPF (0-3); WBC/HPF Greater than 50 HPF (0-3)
== END 2021-05-31 02:00 | disposition home or self-care (01) ==
LOC: ERS 22:55
DX: N30.01 Acute cystitis with hematuria (principal); E03.9 Hypothyroidism, unspecified; I25.10 Atherosclerotic heart disease of native coronary artery without angina pectoris; I25.2 Old myocardial infarction
CPT/HCPCS: 36415; 80053; 81003; 81015; 85025; 87077; 87086; 87186; 99283

== ENCOUNTER 2021-06-01 16:44 | Emergency (ER) | payer MEDICARE, BC ==
[2021-06-01 18:33] LABS: #Basophils 0.1 thou/uL (0.0-0.2); #Eosinphils 0.4 thou/uL (0.0-0.7); #Lymphocytes 1.3 thou/uL (1.20-3.40); #Monocytes 0.6 thou/uL (0.11-0.59); #Neutrophils 6.4 thou/uL (1.40-6.50); %Basophils 0.6 % (0.0-1.0); %Eosinophils 4.2 % (0.0-10.0); %Lymphocytes 14.9 % (21.0-51.0); %Monocytes 6.4 % (0.0-10.0); Hemoglobin 12.7 g/dL (14.0-18.0); Mean Corpuscular HGB CONC 32.8 g/dL (32.0-36.0); Mean Corpuscular Hemoglobin 32.7 pg (27.0-31.0); Mean Corpuscular Volume 99.6 fL (78.0-98.0); Mean Platelet Volume 7.6 fL (7.4-10.4); Platelet Count 205 thou/uL (130-400); RBC Distribution Width 13.5 % (11.5-14.5); Red Blood Cell (RBC) Count 3.87 mill/uL (4.70-6.10); White Blood Cell (WBC) Count 8.7 thou/uL (4.8-10.8)
[2021-06-01 18:58] LABS: ALT (SGPT) 10 U/L (8-55); AST (SGOT) 13 U/L (5-34); Albumin 3.3 g/dL (3.4-4.8); Anion Gap 12 mmol/L (10-20); BUN (Urea Nitrogen) 22 mg/dL (8.4-25.7); Bilirubin, Total 0.6 mg/dL (0.2-1.2); Calc. Creatinine Clearance 0 mL/min (70-130); Calcium 8.7 mg/dL (7.8-10.44); Carbon Dioxide 28 mmol/L (23-31); Chloride 111 mmol/L (98-107); Globulin 3.2 g/dL (2.4-3.5); Glucose 100 mg/dL (83-110); Potassium 3.9 mmol/L (3.5-5.1); Protein, Total 6.5 g/dL (5.8-8.1); Sodium 147 mmol/L (136-145)
[2021-06-01 19:01] LABS: Alkaline Phosphatase 74 U/L (40-110)
== END 2021-06-01 20:30 | disposition home or self-care (01) ==
LOC: ERS 16:44
DX: N39.0 Urinary tract infection, site not specified (principal); I25.10 Atherosclerotic heart disease of native coronary artery without angina pectoris; I25.2 Old myocardial infarction; E78.5 Hyperlipidemia, unspecified; E03.9 Hypothyroidism, unspecified
CPT/HCPCS: 36415; 74176; 80053; 85025

== ENCOUNTER 2022-01-17 16:04 | Inpatient (IN) | payer MEDICARE, BC ==
[2022-01-17] MEDS ORDERED: Cefepime 2 GM VIAL ONE (16:56)
[2022-01-17] MEDS ORDERED: Vancomycin 1 GM/200 ML BAG ONE (16:56)
[2022-01-17 17:34] LABS: #Basophils 0.1 thou/uL (0.0-0.2); #Eosinphils 0.3 thou/uL (0.0-0.7); #Lymphocytes 1.7 thou/uL (1.20-3.40); #Monocytes 0.8 thou/uL (0.11-0.59); %Basophils 0.7 % (0.0-1.0); %Eosinophils 3.1 % (0.0-10.0); %Monocytes 7.7 % (0.0-10.0); %Neutrophils 71.5 % (42.0-75.0); Hemoglobin 12.4 g/dL (14.0-18.0); Mean Corpuscular HGB CONC 32.3 g/dL (32.0-36.0); Mean Corpuscular Hemoglobin 31.8 pg (27.0-31.0); Mean Corpuscular Volume 98.4 fL (78.0-98.0); Mean Platelet Volume 7.3 fL (7.4-10.4); Platelet Count 290 thou/uL (130-400); Red Blood Cell (RBC) Count 3.91 mill/uL (4.70-6.10); White Blood Cell (WBC) Count 9.9 thou/uL (4.8-10.8)
[2022-01-17 18:02] LABS: ALT (SGPT) 10 U/L (8-55); AST (SGOT) 13 U/L (5-34); Albumin 3.7 g/dL (3.4-4.8); Alkaline Phosphatase 100 U/L (40-110); Anion Gap 14 mmol/L (10-20); BUN (Urea Nitrogen) 29 mg/dL (8.4-25.7); Bilirubin, Total 0.5 mg/dL (0.2-1.2); Calc. Creatinine Clearance 0 mL/min (70-130); Calcium 9.1 mg/dL (7.8-10.44); Carbon Dioxide 21 mmol/L (23-31); Chloride 105 mmol/L (98-107); Estimated GFR 36; Globulin 3.4 g/dL (2.4-3.5); Glucose 108 mg/dL (83-110); Potassium 4.2 mmol/L (3.5-5.1); Protein, Total 7.1 g/dL (5.8-8.1); Sodium 136 mmol/L (136-145)
[2022-01-17 20:41] LABS: Lactic Acid 1.5 mmol/L (0.5-2.2)
[2022-01-17] MEDS ORDERED: Acetaminophen 650 MG Suppository PR PRN (20:52)
[2022-01-17] MEDS ORDERED: Senokot S 8.6-50 MG TAB PO PRN (20:52)
[2022-01-17] MEDS ORDERED: Ondansetron ODT 4 MG TAB PO PRN (20:52)
[2022-01-17] MEDS ORDERED: Bisacodyl 5 MG TAB PO PRN (20:52)
[2022-01-17] MEDS ORDERED: Calcium Carbonate 500 MG ChewTAB PO PRN (20:52)
[2022-01-17] MEDS ORDERED: Ondansetron PF 4 MG/2 ML Vial IVP PRN (20:52)
[2022-01-17] MEDS ORDERED: Acetaminophen 325 MG TAB PO PRN (20:52)
[2022-01-17] MEDS ORDERED: Heparin 5,000 UNITS/ML VIAL SC SCH (21:00)
[2022-01-17] MEDS ORDERED: Sodium Chloride 0.9% 1,000 ML IV SCH (21:15)
[2022-01-17] MEDS ORDERED: Dextrose 50% Abboject 50 ML SYRINGE SLOW IVP PRN (21:34)
[2022-01-17] MEDS ORDERED: HumaLOG 300 UNITS/3 ML VIAL SC PRN ×2 (21:34)
[2022-01-17] MEDS ORDERED: Dextrose 5% in Water 1,000 ML IV PRN (21:34)
[2022-01-17 22:08] VITALS: BMI 29.2
[2022-01-17] MEDS ORDERED: Vancomycin 1 GM in Premix Bag 1 BAG IVPB SCH (22:30)
[2022-01-17] MEDS ORDERED: Polyethylene Glycol OPTH DROP 15 ML BOT EA EYE PRN (23:41)
[2022-01-17] MEDS ORDERED: Piperacillin/Tazobactam 3.375 GM in Sodium Chloride 0.9% 100 ML IVPB SCH (23:59)
[2022-01-18] MEDS ORDERED: Piperacillin/Tazobactam 3.375 GM VIAL ONE (04:55)
[2022-01-18] MEDS: Piperacillin/Tazobactam 3.375 GM in Sodium Chloride 0.9% 100 ML IVPB SCH ×3 (05:20→20:04)
[2022-01-18] MEDS: Levothyroxine Sodium 100 MCG TAB PO SCH (05:57)
[2022-01-18 07:09] LABS: Hemoglobin 10.4 g/dL (14.0-18.0); Mean Corpuscular HGB CONC 33.8 g/dL (32.0-36.0); Mean Corpuscular Hemoglobin 33.3 pg (27.0-31.0); Mean Corpuscular Volume 98.6 fL (78.0-98.0); Mean Platelet Volume 7.5 fL (7.4-10.4); Platelet Count 207 thou/uL (130-400); RBC Distribution Width 13.9 % (11.5-14.5); Red Blood Cell (RBC) Count 3.12 mill/uL (4.70-6.10); White Blood Cell (WBC) Count 8.2 thou/uL (4.8-10.8)
[2022-01-18 07:32] LABS: Anion Gap 14 mmol/L (10-20); BUN (Urea Nitrogen) 26 mg/dL (8.4-25.7); Calc. Creatinine Clearance 50 mL/min (70-130); Calcium 8.3 mg/dL (7.8-10.44); Carbon Dioxide 20 mmol/L (23-31); Chloride 110 mmol/L (98-107); Estimated GFR 39; Glucose 139 mg/dL (83-110); Magnesium 2.1 mg/dL (1.6-2.6); Potassium 4.2 mmol/L (3.5-5.1); Sodium 140 mmol/L (136-145)
[2022-01-18 07:54] LABS: Hemoglobin A1c 6.6 % (4.0-6.0)
[2022-01-18] MEDS: glipiZIDE 5 MG TAB PO SCH ×2 (08:35→15:40)
[2022-01-18] MEDS: Apixaban 2.5 MG TAB PO SCH ×2 (08:35→21:23)
[2022-01-18] MEDS: Loratadine 10 MG TAB PO SCH (08:35)
[2022-01-18] MEDS: Ezetimibe 10 MG TAB PO SCH (08:36)
[2022-01-18] MEDS: Sotalol HCl 80 MG TAB PO SCH ×2 (08:36→21:29)
[2022-01-18] MEDS: Isosorbide Dinitrate 5 MG TAB PO SCH ×3 (08:36→21:25)
[2022-01-18] MEDS: Aspirin Chewable 81 MG TAB PO SCH ×2 (08:36→21:23)
[2022-01-18] MEDS: hydrALAZINE 25 MG TAB PO SCH ×3 (08:38→21:33)
[2022-01-18] MEDS ORDERED: Ceftaroline 600 MG in Sodium Chloride 0.9% 100 ML IVPB SCH (09:00)
[2022-01-18] MEDS: Sodium Chloride 0.45% 1,000 ML IV SCH (13:12)
[2022-01-18] MEDS: Donepezil HCl 10 MG TAB PO SCH (21:23)
[2022-01-18] MEDS: Atorvastatin Calcium 40 MG TAB PO SCH (21:23)
[2022-01-18] MEDS ORDERED: Vancomycin 1.5 GRAM/300 ML BAG 1.5 GM in Premix Bag 1 BAG IVPB SCH (22:00)
[2022-01-19] MEDS: Piperacillin/Tazobactam 3.375 GM in Sodium Chloride 0.9% 100 ML IVPB SCH ×3 (03:53→20:43)
[2022-01-19] MEDS: Levothyroxine Sodium 100 MCG TAB PO SCH (05:44)
[2022-01-19] MEDS: Sodium Chloride 0.45% 1,000 ML IV SCH (08:35)
[2022-01-19] MEDS: glipiZIDE 5 MG TAB PO SCH ×2 (08:38→15:34)
[2022-01-19] MEDS: Aspirin Chewable 81 MG TAB PO SCH ×2 (08:39→20:42)
[2022-01-19] MEDS: Isosorbide Dinitrate 5 MG TAB PO SCH ×3 (08:40→20:42)
[2022-01-19] MEDS: Apixaban 2.5 MG TAB PO SCH ×2 (08:40→20:42)
[2022-01-19] MEDS: Loratadine 10 MG TAB PO SCH (08:40)
[2022-01-19] MEDS: Ezetimibe 10 MG TAB PO SCH (08:41)
[2022-01-19] MEDS: hydrALAZINE 25 MG TAB PO SCH ×3 (08:54→20:42)
[2022-01-19] MEDS: Sotalol HCl 80 MG TAB PO SCH ×2 (10:17→20:42)
[2022-01-19] MEDS: Atorvastatin Calcium 40 MG TAB PO SCH (20:42)
[2022-01-19] MEDS: Donepezil HCl 10 MG TAB PO SCH (20:42)
[2022-01-20] MEDS: Piperacillin/Tazobactam 3.375 GM in Sodium Chloride 0.9% 100 ML IVPB SCH (05:10)
[2022-01-20] MEDS: Levothyroxine Sodium 100 MCG TAB PO SCH (05:10)
[2022-01-20 06:28] LABS: #Eosinphils 0.4 thou/uL (0.0-0.7); #Lymphocytes 1.5 thou/uL (1.20-3.40); #Monocytes 0.5 thou/uL (0.11-0.59); #Neutrophils 4.5 thou/uL (1.40-6.50); %Basophils 0.6 % (0.0-1.0); %Eosinophils 5.7 % (0.0-10.0); %Lymphocytes 21.9 % (21.0-51.0); %Monocytes 6.8 % (0.0-10.0); Hemoglobin 10.2 g/dL (14.0-18.0); Mean Corpuscular HGB CONC 32.1 g/dL (32.0-36.0); Mean Corpuscular Volume 99.7 fL (78.0-98.0); Mean Platelet Volume 7.4 fL (7.4-10.4); Platelet Count 201 thou/uL (130-400); RBC Distribution Width 13.9 % (11.5-14.5); Red Blood Cell (RBC) Count 3.19 mill/uL (4.70-6.10); White Blood Cell (WBC) Count 6.9 thou/uL (4.8-10.8)
[2022-01-20 06:46] LABS: Anion Gap 11 mmol/L (10-20); BUN (Urea Nitrogen) 17 mg/dL (8.4-25.7); Calc. Creatinine Clearance 61 mL/min (70-130); Calcium 8.4 mg/dL (7.8-10.44); Carbon Dioxide 23 mmol/L (23-31); Chloride 109 mmol/L (98-107); Estimated GFR 49; Glucose 99 mg/dL (83-110); Sodium 139 mmol/L (136-145)
[2022-01-20] MEDS: Aspirin Chewable 81 MG TAB PO SCH ×2 (08:52→20:59)
[2022-01-20] MEDS: glipiZIDE 5 MG TAB PO SCH ×2 (08:52→16:17)
[2022-01-20] MEDS: Loratadine 10 MG TAB PO SCH (08:52)
[2022-01-20] MEDS: Apixaban 2.5 MG TAB PO SCH ×2 (08:52→21:05)
[2022-01-20] MEDS: Sotalol HCl 80 MG TAB PO SCH ×2 (08:53→21:00)
[2022-01-20] MEDS: Ezetimibe 10 MG TAB PO SCH (08:53)
[2022-01-20] MEDS: Isosorbide Dinitrate 5 MG TAB PO SCH ×3 (08:53→21:05)
[2022-01-20] MEDS: hydrALAZINE 25 MG TAB PO SCH ×3 (09:01→21:01)
[2022-01-20] MEDS: Atorvastatin Calcium 40 MG TAB PO SCH (20:59)
[2022-01-20] MEDS: Donepezil HCl 10 MG TAB PO SCH (21:05)
[2022-01-21] MEDS: Levothyroxine Sodium 100 MCG TAB PO SCH (05:36)
[2022-01-21 08:09] VITALS: BP 116/63; TEMP 98.4
[2022-01-21] MEDS: Isosorbide Dinitrate 5 MG TAB PO SCH (09:22)
[2022-01-21] MEDS: Apixaban 2.5 MG TAB PO SCH (09:22)
[2022-01-21] MEDS: Ezetimibe 10 MG TAB PO SCH (09:23)
[2022-01-21] MEDS: hydrALAZINE 25 MG TAB PO SCH (09:23)
[2022-01-21] MEDS: Sotalol HCl 80 MG TAB PO SCH (09:24)
[2022-01-21] MEDS: glipiZIDE 5 MG TAB PO SCH (09:24)
[2022-01-21] MEDS: Aspirin Chewable 81 MG TAB PO SCH (09:24)
[2022-01-21] MEDS: Loratadine 10 MG TAB PO SCH (09:24)
== END 2022-01-21 14:49 | disposition home or self-care (01) | DRG 303 ==
LOC: ERS 16:04 → T4-B 18:59 → OBSVTOIN 01-19 18:10
PROVIDERS: ADMIT Internal Medicine; ATTEND Internal Medicine
DX: I87.8 Other specified disorders of veins (principal); E87.2 Acidosis; N17.9 Acute kidney failure, unspecified; L03.115 Cellulitis of right lower limb; L03.116 Cellulitis of left lower limb; I25.10 Atherosclerotic heart disease of native coronary artery without angina pectoris; E78.5 Hyperlipidemia, unspecified; E11.51 Type 2 diabetes mellitus with diabetic peripheral angiopathy without gangrene; E66.9 Obesity, unspecified; D53.9 Nutritional anemia, unspecified; N18.30 Chronic kidney disease, stage 3 unspecified; E11.22 Type 2 diabetes mellitus with diabetic chronic kidney disease; I12.9 Hypertensive chronic kidney disease with stage 1 through stage 4 chronic kidney disease, or unspecified chronic kidney disease; E86.0 Dehydration; E11.621 Type 2 diabetes mellitus with foot ulcer; L97.529 Non-pressure chronic ulcer of other part of left foot with unspecified severity; Z20.822 Contact with and (suspected) exposure to COVID-19; R32 Unspecified urinary incontinence; Z99.3 Dependence on wheelchair; I25.2 Old myocardial infarction; Z86.718 Personal history of other venous thrombosis and embolism; Z87.820 Personal history of traumatic brain injury; Z86.16 Personal history of COVID-19; Z88.8 Allergy status to other drugs, medicaments and biological substances; Z79.82 Long term (current) use of aspirin; Z79.890 Hormone replacement therapy; Z79.899 Other long term (current) drug therapy; Z79.84 Long term (current) use of oral hypoglycemic drugs; Z95.1 Presence of aortocoronary bypass graft; Z90.49 Acquired absence of other specified parts of digestive tract; Z90.89 Acquired absence of other organs; Z68.29 Body mass index [BMI] 29.0-29.9, adult
CPT/HCPCS: 36415; 36416; 80048; 80053; 83036; 83605; 83735; 85025; 85027; 87040; 87070; 87149; 87205; 96374; 96375; 96376; 97139; G0378; J0692; J2543; J3370; J3490; J7050; U0003; U0005

== ENCOUNTER 2022-07-11 16:28 | Emergency (ER) | payer MEDICARE, BC ==
[2022-07-11 17:23] LABS: #Eosinphils 0.4 thou/uL (0.0-0.7); #Lymphocytes 1.6 thou/uL (1.20-3.40); #Monocytes 0.7 thou/uL (0.11-0.59); #Neutrophils 6.3 thou/uL (1.40-6.50); %Basophils 0.3 % (0.0-1.0); %Eosinophils 4.5 % (0.0-10.0); %Lymphocytes 17.4 % (21.0-51.0); %Monocytes 7.3 % (0.0-10.0); %Neutrophils 70.6 % (42.0-75.0); Hemoglobin 12.8 g/dL (14.0-18.0); Mean Corpuscular HGB CONC 31.2 g/dL (32.0-36.0); Mean Corpuscular Hemoglobin 31.1 pg (27.0-31.0); Mean Corpuscular Volume 99.8 fl (78.0-98.0); Mean Platelet Volume 7.6 fL (7.4-10.4); Platelet Count 250 10x3/uL (130-400); RBC Distribution Width 14.8 % (11.5-14.5); White Blood Cell (WBC) Count 8.9 10x3/uL (4.8-10.8)
[2022-07-11 17:48] LABS: ALT (SGPT) 11 U/L (8-55); AST (SGOT) 13 U/L (5-34); Alkaline Phosphatase 89 U/L (40-110); Anion Gap 16 mmol/L (10-20); BUN (Urea Nitrogen) 26 mg/dL (8.4-25.7); Bilirubin, Total 0.4 mg/dL (0.2-1.2); Calc. Creatinine Clearance 0 mL/min (70-130); Calcium 9.1 mg/dL (7.8-10.44); Carbon Dioxide 20 mmol/L (23-31); Chloride 108 mmol/L (98-107); Estimated GFR 35; Globulin 3.6 g/dL (2.4-3.5); Glucose 161 mg/dL (83-110); Magnesium 2.5 mg/dL (1.6-2.6); Potassium 4.4 mmol/L (3.5-5.1); Protein, Total 7.6 g/dL (5.8-8.1); Sodium 140 mmol/L (136-145)
== END 2022-07-11 18:29 ==
LOC: ERS 16:28
DX: R00.1 Bradycardia, unspecified (principal); E78.5 Hyperlipidemia, unspecified; E11.9 Type 2 diabetes mellitus without complications; J44.9 Chronic obstructive pulmonary disease, unspecified; Z79.82 Long term (current) use of aspirin; Z79.899 Other long term (current) drug therapy; Z79.01 Long term (current) use of anticoagulants
CPT/HCPCS: 36415; 80053; 83735; 85025; 93005

== ENCOUNTER 2022-10-19 18:24 | Emergency (ER) | payer MEDICARE, BC ==
[2022-10-19 19:43] LABS: #Basophils 0.1 thou/uL (0.0-0.2); #Monocytes 0.6 thou/uL (0.11-0.59); #Neutrophils 5.5 thou/uL (1.40-6.50); %Basophils 0.7 % (0.0-1.0); %Eosinophils 0.3 % (0.0-10.0); %Lymphocytes 11.3 % (21.0-51.0); %Neutrophils 79.4 % (42.0-75.0); Mean Corpuscular HGB CONC 30.3 g/dL (32.0-36.0); Mean Corpuscular Hemoglobin 28.2 pg (27.0-31.0); Mean Corpuscular Volume 93.2 fl (78.0-98.0); Mean Platelet Volume 9.5 fL (7.4-10.4); Platelet Count 232 10x3/uL (130-400); RBC Distribution Width 16.7 % (11.5-14.5); Red Blood Cell (RBC) Count 3.54 mill/uL (4.70-6.10); White Blood Cell (WBC) Count 6.9 10x3/uL (4.8-10.8)
[2022-10-19 20:04] LABS: ALT (SGPT) 7 U/L (8-55); AST (SGOT) 13 U/L (5-34); Albumin 3.3 g/dL (3.4-4.8); Alkaline Phosphatase 73 U/L (40-110); Anion Gap 9 mmol/L (10-20); BUN (Urea Nitrogen) 17 mg/dL (8.4-25.7); Bilirubin, Total 0.5 mg/dL (0.2-1.2); Calc. Creatinine Clearance 0 mL/min (70-130); Calcium 8.6 mg/dL (7.8-10.44); Carbon Dioxide 25 mmol/L (23-31); Chloride 106 mmol/L (98-107); Estimated GFR 42; Globulin 3.2 g/dL (2.4-3.5); Glucose 90 mg/dL (83-110); Potassium 3.8 mmol/L (3.5-5.1); Protein, Total 6.5 g/dL (5.8-8.1); Sodium 136 mmol/L (136-145)
[2022-10-19 23:28] LABS: Bacteria/HPF 4+ HPF (None Seen); Bilirubin Negative (Negative); Blood, Urine 1+ (Negative); CAUTI Indications for Culture Pelvic or flank pain; Clarity Extra Turbid (Clear); Glucose, Urine (Dipstick) 500 mg/dL (Negative); Ketone, Urine Negative (Negative); Leukocyte 500 Leu/uL (Negative); Nitrite 2+ (Negative); Protein, Urine (Dipstick) 70 mg/dL (Neg-Trace); Specific Gravity, Urine 1.019 (1.002-1.036); Squamous Epithelial 0-3 HPF (0-3); Urobilinogen Normal mg/dL (Less than 2); WBC/HPF Greater than 50 HPF (0-3); pH, Urine 5.5 (5.0-9.0)
[2022-10-19 23:58] LABS: Urine Culture Reflex Yes Yes
[2022-10-20] MEDS ORDERED: cefTRIAXone (ROCEPHIN) 1 GM VIAL ONE (00:37)
[2022-10-20] MEDS ORDERED: Lidocaine 1% MPF 2 ML VIAL ONE (00:37)
== END 2022-10-20 01:52 | disposition home or self-care (01) ==
LOC: ERS 18:24
DX: N30.00 Acute cystitis without hematuria (principal); E11.9 Type 2 diabetes mellitus without complications; E78.5 Hyperlipidemia, unspecified; I10 Essential (primary) hypertension; E03.9 Hypothyroidism, unspecified; Z79.82 Long term (current) use of aspirin; Z79.899 Other long term (current) drug therapy; Z79.01 Long term (current) use of anticoagulants
CPT/HCPCS: 36415; 71045; 80053; 81001; 85025; 87086; 93005; 96372; J0696